=== PATIENT | male | born 1995 | race Caucasian/White ===

== ENCOUNTER 2020-09-25 02:50 | Emergency (ER) | payer OTHER ==
[~2020-09-25 02:50] MED LIST: IBUPROFEN800 MG PO; MEDROL 4MG DOSEP4 MG PO; NAPROSYN500 MG PO; NAPROXEN500 MG PO; SUDAFED30 MG PO
== END 2020-09-25 05:18 | disposition home or self-care (01) ==
LOC: FER 02:50
DX: S00.03XA Contusion of scalp, initial encounter (principal); F17.200 Nicotine dependence, unspecified, uncomplicated; W22.03XA Walked into furniture, initial encounter; Y92.89 Other specified places as the place of occurrence of the external cause; Y99.0 Civilian activity done for income or pay
CPT/HCPCS: 70450

== ENCOUNTER 2020-12-19 05:32 | Emergency (ER) | payer OTHER ==
[2020-12-19] MEDS ORDERED: NORCO 5-325 TA1 EACH PO (07:14)
== END 2020-12-19 07:30 | disposition home or self-care (01) ==
LOC: FER 05:32
DX: S60.221A Contusion of right hand, initial encounter (principal); F17.200 Nicotine dependence, unspecified, uncomplicated; W01.198A Fall on same level from slipping, tripping and stumbling with subsequent striking against other object, initial encounter; Y92.89 Other specified places as the place of occurrence of the external cause; Y99.0 Civilian activity done for income or pay
CPT/HCPCS: 73130

== ENCOUNTER 2021-04-13 12:49 | Emergency (ER) | payer SELFPAY ==
[~2021-04-13 12:49] MED LIST changes: +NORCO 5-325 TA1 EACH PO
[2021-04-13 18:03] LABS: BASOPHIL 0.3 % (0-2); EOSINOPHIL 1.3 % (0-5); HCT 47.8 % (42.0-52.0); HGB 16.1 g/dl (13.2-18.0); LYMPHOCYTE 24.2 % (15-48); MCH 30.3 pg (25.0-31.0); MCHC 33.7 g/dL (32.0-36.0); MCV 89.8 fL (78.0-100.0); MONOCYTE 6.1 % (0-12); MPV 10.9 fL (6.0-9.5); NEUTROPHIL 67.6 % (41-80); NRBC 0; PLT 250 K/uL (150-400); RBC 5.32 M/uL (4.70-6.00); RDW 13.1 % (11.5-14.0); WBC 9.2 K/uL (4.0-10.5)
[2021-04-13 18:05] LABS: BILIRUBIN NEGATIVE (NEGATIVE); BLOOD NEGATIVE Ery/uL (NEGATIVE); CLARITY CLEAR (CLEAR); COLOR YELLOW (YELLOW); GLUCOSE (U) NORMAL (NORMAL); LEUKOCYTES NEGATIVE Leu/uL (NEGATIVE); NITRITE NEGATIVE (NEGATIVE); PROTEIN NEGATIVE (NEGATIVE); UROBILINOGEN 0.2 mg/dL (0.2-1.0); pH 6.5 (5.0-9.0)
[2021-04-13 18:18] LABS: ALBUMIN 3.9 g/dL (3.4-5.0); BILIRUBIN - TOTAL 0.4 mg/dL (0.2-1.0); CREATININE 0.91 mg/dL (0.67-1.17); POTASSIUM 3.9 mmol/L (3.5-5.1); TOTAL PROTEIN 7.9 g/dL (6.4-8.2)
[2021-04-13] MEDS ORDERED: NAPROXEN500 MG PO (19:14)
[2021-04-13] MEDS ORDERED: BACLOFEN 10MG T10 MG PO (19:14)
== END 2021-04-13 19:44 | disposition home or self-care (01) ==
LOC: FER 12:49
PROVIDERS: Nurse Practitioner Family
DX: M54.6 Pain in thoracic spine (principal); R10.9 Unspecified abdominal pain; F17.210 Nicotine dependence, cigarettes, uncomplicated; Z98.890 Other specified postprocedural states; W19.XXXA Unspecified fall, initial encounter
CPT/HCPCS: 36415; 80053; 81003; 82150; 83690; 85025; J1885; Q9967

== ENCOUNTER 2021-04-21 08:22 | Emergency (ER) | payer SELFPAY ==
[~2021-04-21 08:22] MED LIST changes: +BACLOFEN 10MG T10 MG PO
[2021-04-21] MEDS ORDERED: FLEXERIL5 MG PO (11:16)
[2021-04-21] MEDS ORDERED: MEDROL 4MG DOSEP4 MG PO (11:16)
== END 2021-04-21 11:22 | disposition home or self-care (01) ==
LOC: FER 08:22
DX: M54.6 Pain in thoracic spine (principal); Z98.890 Other specified postprocedural states
CPT/HCPCS: 72072; J1885